=== PATIENT | male | born 2000 | race Two or more races ===

== ENCOUNTER → 2024-03-02 | Outpatient (CLI) | payer MEDICAID, SELFPAY ==
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
== END | disposition home or self-care (01) ==
PROVIDERS: PCP Family Medicine
DX: S52.512A Displaced fracture of left radial styloid process, initial encounter for closed fracture (principal); X58.XXXA Exposure to other specified factors, initial encounter
CPT/HCPCS: 73110; 73130

== ENCOUNTER → 2024-03-21 | Outpatient (CLI) | payer MEDICAID, SELFPAY ==
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
== END | disposition home or self-care (01) ==
LOC: CDIM 16:20
PROVIDERS: Referring Provider Surgery; Visit Provider Surgery
DX: S52.612A Displaced fracture of left ulna styloid process, initial encounter for closed fracture (principal); X58.XXXA Exposure to other specified factors, initial encounter
CPT/HCPCS: 73110

== ENCOUNTER → 2024-04-03 | Outpatient (CLI) | payer MEDICAID, SELFPAY ==
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
== END | disposition home or self-care (01) ==
PROVIDERS: PCP Family Medicine
DX: S52.292A Other fracture of shaft of left ulna, initial encounter for closed fracture (principal); X58.XXXA Exposure to other specified factors, initial encounter
CPT/HCPCS: 73130

== ENCOUNTER → 2024-04-17 | Outpatient (CLI) | payer MEDICAID, SELFPAY ==
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
== END | disposition home or self-care (01) ==
LOC: COPL 15:22 → CDIM 05-10 19:29
PROVIDERS: PCP Surgery; Referring Provider Surgery; Visit Provider Surgery
DX: M25.532 Pain in left wrist (principal); S52.612A Displaced fracture of left ulna styloid process, initial encounter for closed fracture; X58.XXXA Exposure to other specified factors, initial encounter
CPT/HCPCS: 73110

== ENCOUNTER → 2024-05-22 | Outpatient (CLI) | payer MEDICAID, SELFPAY ==
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
== END | disposition home or self-care (01) ==
LOC: CCTX 06:55
PROVIDERS: Referring Provider Nurse Practitioner Family; Visit Provider Nurse Practitioner Family
DX: S52.615D Nondisplaced fracture of left ulna styloid process, subsequent encounter for closed fracture with routine healing (principal); X58.XXXD Exposure to other specified factors, subsequent encounter
CPT/HCPCS: 73200

== ENCOUNTER → 2024-06-19 | Outpatient (CLI) | payer MEDICAID, SELFPAY ==
--- NOTE | 2024-06-19 14:50 | XR_ITS ---
Examination: Wrist, left 3 views Technique: Wrist AP, oblique, lateral 3 views Date and time of exam: June 19, 2024 1510 hours Comparison April 17, 2024 INDICATIONS: Acute fracture ulnar styloid tip April 17, 2024 FINDINGS: Healed fracture ulnar styloid tip Mild narrowing radiocarpal joint No current dislocation IMPRESSION: Healed fracture ulnar styloid tip
== END | disposition home or self-care (01) ==
LOC: CDIM 14:22
PROVIDERS: Referring Provider Surgery; Visit Provider Surgery
DX: M25.532 Pain in left wrist (principal); Z87.81 Personal history of (healed) traumatic fracture
CPT/HCPCS: 73110